=== PATIENT | male | born 1955 | race Caucasian/White ===

== ENCOUNTER 2023-08-30 17:54 | Emergency (ER) | payer MEDICARE, SELFPAY ==
--- NOTE | ~2023-08-30 | XR_ITS ---
EXAMINATION: XR shoulder LT min 2V, XR clavicle LT DATE: 08/30/2023 19:18 INDICATION: Left clavicular pain post fall TECHNIQUE: 1. AP internally and externally rotated, AP oblique externally rotated and transscapular Y views of t he left shoulder were obtained. 2. AP and cephalad angled AP views of the left clavicle were obtained. COMPARISON: None FINDINGS: Comminuted fractures of the mid left clavicle with one shaft with caudal displacement of the lateral fragment relative to the medial fragment. There is a short intervening central segment which is itsel f divided into 2 separate fragments. No other fractures identified. Normal alignment and joint space at the left glenohumeral joint. Normal alignment with mild osteoarthritis at the left acromioclavicul ar joint. IMPRESSION: Displaced comminuted mid left clavicular fracture. Reviewed, dictated and finalized at location A. CE SERVICES COORDINATOR IMPRESSION: Displaced comminuted mid left clavicular fracture.
--- NOTE | ~2023-08-30 | CT_ITS ---
EXAMINATION: CT brain wo con DATE: 08/30/2023 19:23 INDICATION: Head injury TECHNIQUE: Computed tomography (CT) of the head was performed without intravenous contrast. Sagittal and coronal reconstructions were performed. The mA was adjusted according to patient size. Iterative reconstruction technique was employed. The dose-length product was 681.00 mGy-cm. COMPARISON: None FINDINGS: No fracture. No acute intracranial hemorrhage, acute infarction or abnormal extra axial fluid collect ion. Symmetric prominence of the sulci and subarachnoid spaces overlying the convexities consistent with m ild age-appropriate diffuse cerebral volume loss. Ventricles are normal and symmetric. No mass/mass effect. Changes of bilateral intraocular lens replacement. The orbits, paranasal sinuses and mastoid air cells are normal. IMPRESSION: 1. Normal aging brain. No fracture or acute intracranial process. Reviewed, dictated and finalized at location A. GUARD
--- NOTE | ~2023-08-30 | XR_ITS ---
EXAMINATION: XR chest 2V DATE: 08/30/2023 19:18 INDICATION: Fall from ladder TECHNIQUE: PA and lateral views of the chest were obtained. COMPARISON: Chest radiograph dated 09/09/2007 FINDINGS: The lungs remain clear with no focal airspace opacities, pulmonary edema, pleural effusion or pneumot horax. The cardiomediastinal silhouette is normal. Mildly comminuted fractures of the mid left clavic le with two thirds shaft widths caudal displacement of the lateral fragment. Mild thoracic spondylosi s. IMPRESSION: 1. No acute cardiopulmonary disease. 2. Left clavicle fracture. Reviewed, dictated and finalized at location A. ER
--- NOTE | ~2023-08-30 | CT_ITS ---
EXAMINATION: CT cervical spine wo con DATE: 08/30/2023 19:23 INDICATION: Fall from ladder with head injury TECHNIQUE: Computed tomography (CT) of the cervical spine was performed without intravenous contrast. Automated exposure control and iterative reconstruction technique were employed. The dose-length pro duct was 344.00 mGy-cm. COMPARISON: None FINDINGS: Alignment is normal. Vertebral body heights are normal. No fracture. Mild disc height loss throughout the cervical spine relatively sparing C3-C4. Moderate uncovertebral osteoarthritis on the right at C 5-C6 with otherwise multilevel minimal to mild bilateral cervical uncovertebral osteoarthritis. Sever e facet osteoarthritis on the left at C7-T1 and on the right at C4-C5. Mild to moderate facet osteoar thritis at the remaining cervical levels. Together this contributes to multilevel mild neural foramin al stenosis on the right at C3-C4 through C5-C6 and on the left at C5-C6 and C7-T1. Disc bulges resul ting in mild central canal stenosis at C3-C4 and C5-C6. Cervical soft tissues are unremarkable. Mild biapical pleural-parenchymal scarring. IMPRESSION: 1. Mild cervical spondylosis. No acute osseous abnormality. Reviewed, dictated and finalized at location A. OW TILE PARTITION ERECTOR
[2023-08-30 17:58] VITALS: BP 143/76; PULSE 78; RESP 20; TEMP 36.1; O2SAT 100
[2023-08-30] MEDS: ONDANSETRON HCL ODT 4 MG TABLET PO (19:05)
[2023-08-30] MEDS: oxyCODONE/ACETAMINOPHEN (*CRX) 5-325 MG TABLET 1 TABLET PO (19:05)
--- NOTE | 2023-08-30 19:27 | ED.HEATRA ---
HPI - Head Injury General Chief complaint: Trauma Stated complaint: fall 6ft off ladder, left shoulder pain Time Seen by Provider: 08/30/23 18:14 Source: patient, RN notes reviewed and old records reviewed Mode of arrival: ambulatory Limitations: no limitations History of Present Illness HPI Narrative: This is a 68 year old male who presents for evaluation of left clavicle pain s/p fall. Patient states he was on a ladder in his shed. His was trying to guide his foot on the ladder for him to get down and he fell off. He states he was approximately 6 feet off the ground. He fell onto his left shoulder and he states he his his head on the ground. He thinks most of injury was to his left shoulder and he has noticed deformity to his left clavicle. He denies LOC, nausea, vomiting rib pain, back pain, other injuries. He was ambulatory. He denies taking anticoagulation. Patient was placed in c collar in ER. Related Data Allergies Allergy/AdvReac Type Severity Reaction Status Date / Time No Known Allergies Allergy Verified 06/08/23 10:38 Review of Systems Constitutional: Constitutional: Denies weakness Cardiovascular: Cardiovascular: Denies syncope, Denies rapid heart rate, Denies irregular heart rhythm, Denies leg edema and Denies dyspnea Respiratory: Respiratory: Denies chest congestion, Denies hemoptysis, Denies excessive phlegm production and Denies dyspnea Gastrointestinal: Gastrointestinal: Denies abdominal pain, Denies hematochezia, Denies diarrhea and Denies vomiting Genitourinary: Genitourinary: Denies hematuria, Denies dysuria, Denies penile discharge and Denies testicular pain Musculoskeletal: Musculoskeletal: Reports arthralgias, Denies joint swelling, Denies loss of height and Denies muscle weakness Neurologic: Denies syncope, Denies focal weakness and Denies weakness PMFSH Past Medical History Medical History Liposarcoma Family History Family History Mother Family history of malignant neoplasm of breast in first degree relative Social History Social History Smoking status: Never smoker Second hand tobacco smoke exposure: No Alcohol intake: never Substance use: unknown Lack of Transportation: No Lack of Food: Never True Current Housing: I Have Housing Concerned About Future Housing: No Difficulty Paying Gas/Electric Bills: No Difficulty Paying for Meds: No Currently Unemployed: No Education: High School Diploma/GED Difficulty w/ Childcare or Family Care: No Exam Const: General: no acute distress and alert Nutritional Appearance: well nourished Orientation/consciousness: patient oriented x3 HENMT: Head: normal to inspection Face/Nose/Sinus: Normal external nose present Face and sinus: normal facial exam Mouth: Yes Normal oral and palatal mucosa present, Yes lip normal and Yes moist mucous membranes Eyes: EOM: EOMs intact bilaterally Chest: Chest palpation & inspection: normal inspection of the chest Other: left mid clavicle deformity, swelling Resp: Effort & Inspection: normal respiratory effort Auscultation: clear to auscultation bilaterally GI: GI Palp: Yes Soft to palpation, No Tenderness to palpation present (GI), No Guarding due to palpation present (GI) and No Rigid due to palpation Auscultation: normal bowel sounds Skin: General skin exam: normal color Rashes: no rashes Wounds: no wounds Neuro: General: patient oriented x3 and moves all extremities Psych: Mental Status: mental status grossly normal Affect: normal affect Attitude: cooperative Course Reevaluation(s) Reevaluation #1: I discussed with patient xray showing clavical fracture and CT cervical spine showing bulging disc. I Discussed follow up with ortho regarding his clavical fracture and he should follow up with PCP regardi
[2023-08-30 20:49] VITALS: BP 150/72; PULSE 74; RESP 21; O2SAT 99
== END 2023-08-30 20:52 | disposition home or self-care (01) ==
PROVIDERS: Emergency Provider General Practice; PCP Internal Medicine
DX: S42.022A Displaced fracture of shaft of left clavicle, initial encounter for closed fracture (principal); S09.90XA Unspecified injury of head, initial encounter; W11.XXXA Fall on and from ladder, initial encounter; Y92.008 Other place in unspecified non-institutional (private) residence as the place of occurrence of the external cause
CPT/HCPCS: 70450; 71046; 72125; 73000; 73030; 99284; A4565; A9270

== ENCOUNTER 2023-10-06 14:15 | Outpatient (CLI) | payer MEDICARE, SELFPAY ==
--- NOTE | ~2023-10-06 | XR_ITS ---
EXAM: XR clavicle LT DATE: 10/06/2023 14:33 HISTORY: FELL OFF OF A LADDER . COMPARISON: 09/14/2023. FINDINGS: Normal mineralization. Redemonstration of the comminuted left midshaft fracture, with stab le, if not slightly improved alignment. Possible early healing change. No new acute fracture or dislo cation. No lytic or blastic lesion. Joint spaces and physes are maintained. No erosion or periosteal change. Soft tissues within normal limits. IMPRESSION: Likely early healing change in the comminuted left midshaft clavicular fracture. Reviewed, dictated and finalized at location K. GER STORY IMPRESSION: Likely early healing change in the comminuted left midshaft clavicu lar fracture.
== END 2023-10-06 14:16 | disposition home or self-care (01) ==
PROVIDERS: PCP Internal Medicine; Visit Provider Orthopaedic Surgery
DX: S42.002D Fracture of unspecified part of left clavicle, subsequent encounter for fracture with routine healing (principal); W11.XXXD Fall on and from ladder, subsequent encounter
CPT/HCPCS: 73000

== ENCOUNTER 2023-10-31 10:18 | Outpatient (CLI) | payer MEDICARE, SELFPAY ==
--- NOTE | ~2023-10-31 | XR_ITS ---
2 views of the left clavicle CLINICAL HISTORY: Fracture COMPARISON: 10/06/2023 FINDINGS: Displaced, probable comminuted fracture of the midshaft left clavicle is essentially stable from prior exam. Alignment is unchanged. Joint spaces are preserved. Soft tissues are unremarkable. IMPRESSION: No significant interval change in comminuted midshaft fracture of the left clavicle. Reviewed, dictated and finalized at location . ER IMPRESSION: No significant interval change in comminuted midshaft fracture of the left clav icle.
== END 2023-10-31 10:19 | disposition home or self-care (01) ==
PROVIDERS: PCP Internal Medicine; Visit Provider Orthopaedic Surgery
DX: S42.022D Displaced fracture of shaft of left clavicle, subsequent encounter for fracture with routine healing (principal); X58.XXXD Exposure to other specified factors, subsequent encounter
CPT/HCPCS: 73000

== ENCOUNTER 2025-04-27 09:29 | Outpatient (CLI) | payer MEDICARE, SELFPAY ==
--- OUTSIDE RECORDS SUMMARY | 2025-04-27 09:34 | XMS_ITS ---
Author Organization [facility] Address [address] [place] [address] Care Team Providers Care High Risk Ob Name Role Phone Migration, Provider Unavailable Unavailable [place] FOR [place]IT [place] [place] Location Date Provider Diagnosis [facility] [address] [place] [address] 09/24/2024 Provider Migration Plan Of Treatment No Information Progress Notes * MACK CHIN LDOB: 6 (69 yo M)Acc No.[id number]:09/24/2024 Patient: MACK MARTIN Shawn :1955 A ge:69 Y S ex:Male Address:[address] [place] [id number] Subjective: * Chief Complaints: * E MR-Jose * Medical History: * Surgical History: * Hospitalization/Major Diagno stic Procedure: * Medications: Objective: * Vitals: * Physical Examination: Assessment: Plan: * Treatment: * Procedure Codes: * * Date:
--- OUTSIDE RECORDS SUMMARY | 2025-04-27 09:34 | XMS_ITS ---
Author Organization [facility] Address [address] [place] [address] Care Team Providers Care Radiator Tester Name Role Phone Migration, Provider Unavailable Unavailable REASON FOR VISIT [facility] [place] Encounter Location Date Provider Diagnosis [facility] [address] [place] [address] 09/25/2024 Provider Migration Plan Of Treatment No Information Progress Notes * MACK CHIN LDOB: [birth year] (69 yo M)Acc No.[id number]:09/25/2024 Patient: MACK MARTIN Shawn :1955 A ge:69 Y S ex:Male Address:[address] [place] [id number] Subjective: * Chief Complaints: * E MR-Jose * Medical History: * Surgical History: * Hospitalization/Major Diagno stic Procedure: * Medications: Objective: * Vitals: * Physical Examination: Assessment: Plan: * Treatment: * Procedure Codes: * * Date:
--- OUTSIDE RECORDS SUMMARY | 2025-04-27 09:34 | XMS_ITS | Patient Health Record ---
Author Organization [facility] [place] Address [address] [place] [address] Care Team Providers Care Bale Breaker Operator Name Role Phone Migration, Provider Unavailable Unavailable Reason For Referral No Information Encounters Encounter Location Date Provider Diagnosis [facility] [place] [address] [place] [address] 09/24/2024 Provider Migration [facility] [address] [place] [address] 09/25/2024 Provider Migration Plan Of Treatment No Information
[2025-04-27 10:00] LABS: Alanine Aminotransferase 23 U/L (6-50); Albumin Level 4.0 g/dL (3.5-5.1); Alkaline Phosphatase 68 U/L (38-126); Anion Gap 8 mmol/L (4-12); Aspartate Amino Transferase 26 U/L (17-59); Bilirubin,Total 0.7 mg/dL (0.2-1.3); Blood Urea Nitrogen 17 mg/dL (9-20); Calcium 9.0 mg/dL (8.4-10.2); Carbon Dioxide 27 mmol/L (22-30); Chloride 107 mmol/L (98-107); Estimated Glomerular Filt Rate > 60; Glucose 114 mg/dL (65-110); Potassium 4.6 mmol/L (3.4-5.0); Sodium 142 mmol/L (137-145); Total Protein 7.4 g/dL (6.3-8.2)
[2025-04-27 10:29] LABS: Hemoglobin A1C 5.6 % (<5.7)
[2025-04-27 10:31] LABS: Prostate Specific Antigen 11.8 ng/mL (< OR = 4.0)
== END 2025-04-27 09:30 | disposition home or self-care (01) ==
PROVIDERS: PCP Internal Medicine; Visit Provider Internal Medicine
DX: R97.20 Elevated prostate specific antigen [PSA] (principal); R73.9 Hyperglycemia, unspecified; R00.2 Palpitations; Z12.5 Encounter for screening for malignant neoplasm of prostate
CPT/HCPCS: 36415; 80053; 83036; 84153

== ENCOUNTER 2025-09-14 09:53 | Outpatient (CLI) | payer MEDICARE, SELFPAY ==
[2025-09-15 07:09] LABS: PSA, Free 1.96 ng/mL
== END 2025-09-14 09:54 | disposition home or self-care (01) ==
LOC: ANHLAB 09:54
PROVIDERS: PCP Internal Medicine; Visit Provider Internal Medicine
DX: R97.20 Elevated prostate specific antigen [PSA] (principal)
CPT/HCPCS: 84153; 84154